=== PATIENT | female | born 1955 | race Two or more races ===

== ENCOUNTER 2016-04-18 21:17 | Emergency (ER) | payer MEDICARE, OTHER ==
[2016-04-18] MEDS ORDERED: IOPAMIDOL 370 (76%) 100 ML VIAL IV ONE (21:18)
[2016-04-18] MEDS ORDERED: FENTANYL 100 MCG/2 ML VIAL ONE (22:31)
[2016-04-18] MEDS ORDERED: SODIUM CHLORIDE 0.9% 1,000 ML ONE (22:31)
[2016-04-18 22:37] LABS: ABSOLUTE NEUTROPHIL COUNT 2.9 K/mm3 (1.8-7.7); BASO % 0.4 % (0.2-1.0); EOS # 0.1 (0.0-0.5); EOS % 0.9 % (0.9-2.9); HEMATOCRIT 39.7 % (37.0-47.0); HEMOGLOBIN 12.9 gm/l (12.0-16.0); IMM NEUT% 0.4 % (0-1); LYMPH # 2.1 (1.0-4.8); MEAN CELL VOLUME 91.1 fl (81.0-99.0); MEAN CORPUSCULAR HEMOGLOBIN 29.6 pg (27.0-31.0); MEAN CORPUSCULAR HGB CONC 32.5 g/dl (33.0-37.0); MEAN PLATELET VOLUME 9.5 fl (7.4-10.4); MONO # 0.5 (0.0-0.8); MONO % 8.2 % (4-12); NEUT % 52.1 % (43-75); PLATELET COUNT 228 K/mm3 (130-400); RED CELL DISTRIBUTION WIDTH 13.5 % (11.5-14.5)
[2016-04-18 22:56] LABS: ALB/GLOB RATIO 1.7 (>1.0); ALBUMIN 4.2 gm/dL (3.5-5.7); CALCIUM 9.6 mg/dL (8.6-10.3)
--- NOTE | 2016-04-19 07:38 | CT ---
HEAD W/O CON History: Headache. Comparison: None. Procedure: 1 mm axial images were obtained through the head from the vertex to the base of the skull without intravenous contrast. Stacked reconstructed 5 mm images were then obtained in the axial, coronal and sagittal planes. Findings: The lateral ventricles are of normal size and shape without evidence of hydrocephalus. No evidence of midline shift is seen. No mass or mass-effect is observed. No evidence of intra- or extra-axial fluid collections or hemorrhage is identified. The rachel/white differentiation is within expected. The basilar cisterns remain uneffaced. The posterior fossa structures are unremarkable. No acute osseous abnormalities are identified. There is a calcific focus seen within the right occipital region posterior to the atria of the right lateral ventricle which may reflect residua of chronic infection/inflammation. Impression: 1. No findings of acute intracranial hemorrhage. 2. A calcific focus within the right occipital region posterior to the atria of the right lateral ventricle which may be residua of prior inflammation/infection. The findings were called to the emergency room at 2325 hours, 04/18/2016, by [facility].
--- NOTE | 2016-04-19 07:47 | CT ---
CTA HEAD W/ POST PROCESS History: Headache. Comparison: Unenhanced head CT examination of same day. Procedure: 1 mm axial images were obtained through the head following the administration of 80cc's of Isovue-370 intravenous contrast. Stacked reconstructed 3 mm images were then photographed in the axial, coronal and sagittal planes. 3-D reconstructed MIP images were also performed on the scanner workstation. Findings: Images demonstrate a normal appearance of the visualized intracranial contents. The orbits and retro-orbital structures appear to be intact. The visualized paranasal sinuses are appropriate. The arterial vascular structures are normally opacified. The intracranial carotid arteries demonstrate a normal course and caliber with no stenosis or focal aneurysm visualized. The middle cerebral arteries appear to be appropriate with no distal pruning visualized. The anterior cerebral arteries are unremarkable. The posterior circulation demonstrates codominant vertebral arteries though the vertebral arteries are somewhat small size. The visualized proximal basilar artery is of small caliber as well. The midportion of the basilar artery demonstrates little significant flow which may reflect severe stenosis versus occlusion. The posterior cerebral arteries appear to be patent, likely degenerating flow from the anterior circulation through large bilateral posterior communicating arteries. The size of the kidney indicating artery suggests these findings may be chronic. Impression: 1. 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 The posterior cerebral arteries appear to likely receive flow from the anterior circulation through large bilateral posterior communicating arteries. The size of the posterior communicating arteries suggests these findings may be chronic. The findings were called to the emergency room at 2325 hours, 04/18/2016, by [facility].
== END 2016-04-19 00:14 | disposition home or self-care (01) ==
LOC: ED 21:17
DX: G44.1 Vascular headache, not elsewhere classified (principal); I65.1 Occlusion and stenosis of basilar artery; Z86.73 Personal history of transient ischemic attack (TIA), and cerebral infarction without residual deficits
CPT/HCPCS: 85025; 80053; 70450; 70496; 99283 ×2; 96374; 96360; J3010; J7030; Q9967